=== PATIENT | male | born 2000 | race Caucasian/White ===

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

== ENCOUNTER 2022-07-15 17:15 | Emergency (ER) | payer OTHER ==
[~2022-07-15] VITALS: Ht 187.9 cm; Wt 83.9 kg
[~2022-07-15 17:15] MED LIST changes: +SEPTDS PO
== END 2022-07-15 18:33 | disposition home or self-care (01) ==
LOC: ED 17:15
DX: S80.211A Abrasion, right knee, initial encounter (principal); S50.311A Abrasion of right elbow, initial encounter; Z91.030 Bee allergy status; Z90.89 Acquired absence of other organs; Z98.890 Other specified postprocedural states; V59.40XA Driver of pick-up truck or van injured in collision with unspecified motor vehicles in traffic accident, initial encounter; Y93.89 Activity, other specified; Y92.410 Unspecified street and highway as the place of occurrence of the external cause; Y99.8 Other external cause status